=== PATIENT | female | born 1960 | race Caucasian/White ===

== ENCOUNTER → 2016-09-24 | Outpatient (CLI) | payer MEDICARE, OTHER | LOC: OD 10:09 | PROVIDERS: ATTEND Nurse Practitioner Acute Care | DX: M54.5 Low back pain (principal); R07.81 Pleurodynia; M47.896 Other spondylosis, lumbar region | CPT/HCPCS: 72110; 72220 ==

== ENCOUNTER 2016-12-05 12:58 | Emergency (ER) | payer MEDICARE, OTHER ==
[2016-12-05] MEDS ORDERED: KETOROLAC TROMETHAMINE INJ/PF 30 MG/1 ML SDV IV ONE (13:27)
[2016-12-05] MEDS ORDERED: NORMAL SALINE 1000 ML 1,000 ML IV ONE (13:27)
[2016-12-05] MEDS ORDERED: DIPHENHYDRAMINE HCL 50 MG/ML VIAL IV ONE (13:27)
[2016-12-05] MEDS ORDERED: PROCHLORPERAZINE EDISYLATE INJ 10 MG/2 ML VIAL IV ONE (13:28)
--- NOTE | 2016-12-05 13:35 | ER Document Report ---
ED Headache - General Mode of Arrival: Medic Information source: Patient TRAVEL OUTSIDE OF THE [place] IN LAST 30 DAYS: No - HPI Patient complains to provider of: "Migraine" Patient reports: Occasional migraines Onset: This morning Timing: Worse Associated symptoms: Photophobia Exacerbated by: Light, Noise - General Chief Complaint: Headache <24 hrs old Stated Complaint: HEADACHE Notes: Patient is a 56-year-old female presenting to the emergency department concerned of a migraine onset this morning. Patient has a history of migraines , and she states that this feels similar but much worse than her typical migraines. Patient admits to nausea, vomiting, diarrhea, and hot flashes. Patient also states that she is photophobic and sound sensitive as well. (ADAN WASHINGTON) This 56-year-old female patient comes in complaining of migraine headache since earlier this morning. There is some nausea vomiting and diarrhea. She states this is worse than her typical migraines but similar to her bad migraines. When I ask her about her medication she told me she takes verapamil, Topamax twice today, forming, and some new medication for anxiety and depression. She states she was weaned off of Ambien and Ativan 3-4 weeks ago. Review of the [place] controlled substances reporting system shows over the past few years the patient gets prescriptions of #60 Demerol 50mg tablets and #90 Soma 350 mg tablets. The most recent prescription of 50mg Demerol #60 tablets was on 11/10/2016. ( FARZANEH CAMPBELL) - Related Data Allergies/Adverse Reactions: hydromorphone HCl [From Dilaudid] Allergy (Severe, Verified 11/15/13 18:55) Anaphylaxis acetaminophen [From Percocet] Allergy (Verified 12/05/16 14:00) codeine [Codeine] Allergy (Verified 11/15/13 18:55) Anaphylaxis fluoxetine HCl [From Prozac] Allergy (Verified 11/15/13 18:55) ALTERED MENTAL STATUS oxycodone [From Percocet] Allergy (Verified 12/05/16 14:00) Sulfa (Sulfonamide Antibiotics) Allergy (Verified 12/05/16 14:00) divalproex sodium [From Depakote] Adverse Reaction (Verified 11/15/13 18:55) WEIGHT GAIN duloxetine HCl [From Cymbalta] Adverse Reaction (Verified 11/15/13 18:55) WEIGHT GAIN sertraline HCl [From Zoloft] Adverse Reaction (Verified 11/15/13 18:55) Anxiety beesting Allergy (Severe, Uncoded 11/15/13 18:55) Shortness of Breath Past Medical History - General Information source: Patient - Social History Smoking Status: Never Smoker Family History: Reviewed & Not Pertinent - Past Medical History Cardiac Medical History: Reports: Hx Hypertension Pulmonary Medical History: Reports: Hx Asthma - hx of, Hx Bronchitis, Hx Pneumonia Endocrine Medical History: Reports: Hx Hypothyroidism Malignancy Medical History: Reports: Hx Ovarian Cancer - early stages had removed Psychiatric Medical History: Reports: Hx Anxiety, Hx Depression Past Surgical History: Reports: Hx Appendectomy - 1977, Hx Cholecystectomy - 2001, Hx Hysterectomy, Hx Orthopedic Surgery - left knee surgery, Hx Tonsillectomy - at 29yrs of age, Hx Tubal Ligation - Immunizations Hx Diphtheria, Pertussis, Tetanus Vaccination: - possibly out of date Hx Pneumococcal Vaccination: 10/01/11 Review of Systems - Review of Systems Constitutional: See HPI, Diaphoresis EENT: No symptoms reported Cardiovascular: No symptoms reported Respiratory: No symptoms reported Gastrointestinal: See HPI, Diarrhea, Nausea, Vomiting Genitourinary: No symptoms reported Female Genitourinary: No symptoms reported Musculoskeletal: No symptoms reported Skin: No symptoms reported Hematologic/Lymphatic: No symptoms reported Neurological/Psychological: See HPI, Headaches -: Yes All other systems reviewed and negative Physical Exam - General General appearance: Alert - HEENT Head: Normocephalic, Atraumatic, Tenderness - Tenderness to palpation over the forehead and temporal muscles Eyes: Other - Photophobic Pupils: PERRL Neck: Posterior cervical chain - Tender to palpation - Respiratory Respiratory status: No respiratory distress, Respiratory distress Chest status: Nontender Breath sounds: Normal Chest palpation: Normal - Cardiovascular Rhythm: Regular Heart sounds: Normal auscultation Murmur: No - Abdominal Inspection: Obese Distension: No distension Tenderness: Nontender - Back Back: Normal, Nontender - Extremities General upper extremity: Normal inspection, Nontender General lower extremity: Normal inspection, Nontender - Neurological Neuro grossly intact: Yes Cognition: Normal Orientation: AAOx4 Yas Coma Scale Eye Opening: Spontaneous [place] Coma Scale Verbal: Oriented [place] Coma Scale Motor: Obeys Commands Yas Coma Scale Total: 15 Speech: Normal - Psychological Associated symptoms: Normal affect, Normal mood - Skin Skin Temperature: Warm Skin Moisture: Dry Skin Color: Normal Discharge - Discharge Clinical Impression: Mixed migraine and muscle contraction headache Condition: Stable Disposition: HOME, SELF-CARE Additional Instructions: REST IN A COOL, DARK, QUIET ROOM. CONTINUE YOUR REGULAR MEDICATIONS. FOLLOW UP WITH YOUR DOCTOR IF NOT IMPROVING. RETURN TO THE EMERGENCY ROOM IF ANY NEW OR WORSENING SYMPTOMS. Referrals: MACHO FELTON MD [Primary Care Provider] - Follow up as needed Scribe Attestation: 12/05/16 15:59 I personally performed the services described in the documentation, reviewed and edited the documentation which was dictated to the scribe in my presence, and it accurately records my words and actions. (FARZANEH CAMPBELL) Scribe Documentation - Scribe Written by Shanon:: Adan Washington 12/05/2016 1330 acting as scribe for :: Anne
[2016-12-05] MEDS ORDERED: MORPHINE SULFATE 10 MG/ML INJ IV ONE (15:04)
[2016-12-05 16:26] VITALS: BP 119/55
== END 2016-12-05 16:26 | disposition home or self-care (01) ==
LOC: ER 12:58
DX: G43.909 Migraine, unspecified, not intractable, without status migrainosus (principal); H53.149 Visual discomfort, unspecified; R11.2 Nausea with vomiting, unspecified; R19.7 Diarrhea, unspecified; R61 Generalized hyperhidrosis; F41.9 Anxiety disorder, unspecified; F32.9 Major depressive disorder, single episode, unspecified; I10 Essential (primary) hypertension; J45.909 Unspecified asthma, uncomplicated; Z79.899 Other long term (current) drug therapy; Z79.891 Long term (current) use of opiate analgesic; Z88.8 Allergy status to other drugs, medicaments and biological substances; Z88.2 Allergy status to sulfonamides; Z91.030 Bee allergy status; Z87.892 Personal history of anaphylaxis; Z88.5 Allergy status to narcotic agent; Z85.43 Personal history of malignant neoplasm of ovary
CPT/HCPCS: 99283; 96361; 96374; 96375; J1200; J1885; J2270; J0780; J7030

== ENCOUNTER 2017-01-28 07:53 | Day surgery (SDC) | payer MEDICARE, OTHER ==
[2017-01-28 08:50] LABS: PROTHROMBIN TIME 13.7 SEC (11.4-15.4)
[2017-01-28 08:51] LABS: PARTIAL THROMBOPLASTIN TIME 31.4 SEC (23.5-35.8)
--- NOTE | 2017-01-28 10:44 | RADIOLOGY REPORT (SQ) ---
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 IMPRESSION: Please see combined report for performance of procedure and radiologic supervision and i nterpretation.
--- NOTE | 2017-01-28 10:46 | RADIOLOGY REPORT (SQ) ---
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 FLUOROSCOPY TIME: 0.6 minute 2 images saved to PACS. TECHNIQUE: Fluoroscopic guided lumbar puncture. LIMITATIONS: None. PROCEDURE: After written consent and assessment were obtained, the patient was brought into the fluo roscopy room and placed prone on the table. The patient's lower back was prepped in a sterile fashio n and an entry site was selected under live fluoroscopic guidance. The entry site was anesthetized wi th 1% lidocaine. A 25 gauge needle was advanced through the skin and into the thecal sac at the level of L2-L3. After approximately 8 ml was drained, the needle was removed and a sterile bandage was venus malcolm of the site. Specimens was sent to the lab for testing. A fluoroscopic spot image was saved to PACS confirming level access. FINDINGS: Clear CSF IMPRESSION: Lumbar puncture under fluoroscopy. No immediate complication. COMMENT: Patient medication list reviewed: Yes. Quality ID [id number]: Final reports for procedures using fluoroscopy that document radiation exposure dolly mary, or exposure time and number of fluorographic images (if radiation exposure indices are not avail able) TECHNICAL DOCUMENTATION: JOB ID: [id number] [employer]- All Rights Reserved
[2017-01-28 11:26] LABS: GLUCOSE,CSF 67 mg/dL (40-70)
[2017-01-28 12:09] LABS: APPEARANCE ALL TUBES CLEAR; APPEARANCE TUBE 1 CLEAR; APPEARANCE TUBE 2 CLEAR; APPEARANCE TUBE 3 CLEAR; RBC AVERAGE 56.5; RBC DILUENT USED NONE USED; RBC SIDE 1 54; RBC SIDE 2 59
[2017-01-28 12:10] LABS: RBC DILUTION FACTOR 1; TOTAL RBC SQUARES COUNTED 225; WHITE BLOOD CELL,CSF 3 /uL (0-5)
[2017-01-28 14:14] VITALS: BP 107/58
[2017-01-31 15:38] LABS: CSF IGG INDEX 0.5 (0.0-0.7); IGG SYNTHESIS RATE CSF 1.8 mg/day (-9.9 TO +3.3); IGG/ALBUMIN RATIO CSF 0.08 (0.00-0.25)
== END 2017-01-28 12:40 | disposition home or self-care (01) ==
LOC: RAD 07:53
PROVIDERS: ATTEND Specialist
PROC: 009U3ZX Drainage of Spinal Canal, Percutaneous Approach, Diagnostic (ICD-10-PCS; principal; 2017-01-28)
DX: G35 Multiple sclerosis (principal); Z79.01 Long term (current) use of anticoagulants
CPT/HCPCS: 36415; 62270; 77003; 82784; 82945; 82962; 83916; 84157; 85610; 85730; 87070; 87205; 89050

== ENCOUNTER 2017-01-31 13:10 | Day surgery (SDC) | payer MEDICARE, OTHER ==
[2017-01-31 14:07] VITALS: BP 133/72
== END 2017-01-31 14:10 | disposition home or self-care (01) ==
LOC: ASU 13:10
PROVIDERS: ATTEND Anesthesiology
PROC: 3E0S3GC Introduction of Other Therapeutic Substance into Epidural Space, Percutaneous Approach (ICD-10-PCS; principal; 2017-01-31)
DX: G97.1 Other reaction to spinal and lumbar puncture (principal); Y84.4 Aspiration of fluid as the cause of abnormal reaction of the patient, or of later complication, without mention of misadventure at the time of the procedure; Y92.530 Ambulatory surgery center as the place of occurrence of the external cause
CPT/HCPCS: 62273

== ENCOUNTER 2018-11-26 16:29 | Observation (INO) | payer MEDICARE, OTHER ==
[2018-11-26 17:37] LABS: ABSOLUTE BASOPHILS # (AUTO) 0.1 10^3/uL (0.0-0.2); ABSOLUTE EOSINOPHILS # (AUTO) 0.2 10^3/uL (0.0-0.6); ABSOLUTE LYMPHOCYTES (AUTO) 3.2 10^3/uL (0.5-4.7); ABSOLUTE MONOCYTES (AUTO) 0.7 10^3/uL (0.1-1.4); BASOPHILS % (AUTO) 0.7 % (0-2); EOSINOPHILS % (AUTO) 2.6 % (0-6); HEMATOCRIT 38.6 % (36.0-47.0); HEMOGLOBIN 13.4 g/dL (12.0-15.5); LYMPHOCYTES % (AUTO) 39.5 % (13-45); MEAN CORPUSCULAR HEMOGLOBIN 30.1 pg (27.0-33.4); MEAN CORPUSCULAR HGB CONC 34.7 g/dL (32.0-36.0); MEAN CORPUSCULAR VOLUME 87 fl (80-97); MONOCYTES % (AUTO) 8.9 % (3-13); PLATELET COUNT 253 10^3/uL (150-450); RED BLOOD COUNT 4.44 10^6/uL (3.72-5.28); SEGMENTED NEUTROPHILS % (AUTO) 48.3 % (42-78); TOTAL CELLS COUNTED % (AUTO) 100 %; WHITE BLOOD COUNT 8.2 10^3/uL (4.0-10.5)
[2018-11-26 17:54] LABS: ANION GAP 10 (5-19); BLOOD UREA NITROGEN 12 mg/dL (7-20); CALCIUM 9.6 mg/dL (8.4-10.2); CARBON DIOXIDE 19 mmol/L (22-30); CHLORIDE 114 mmol/L (98-107); GLUCOSE 138 mg/dL (75-110); POTASSIUM 3.6 mmol/L (3.6-5.0); SODIUM 142.5 mmol/L (137-145)
[2018-11-26] MEDS ORDERED: ONDANSETRON HCL INJ/PF 4 MG/2 ML SDV ONE (18:46)
[2018-11-26] MEDS ORDERED: MORPHINE SULFATE 10 MG/ML INJ ONE ×2 (18:46→20:56)
[2018-11-26] MEDS ORDERED: KETOROLAC TROMETHAMINE INJ/PF 30 MG/1 ML SDV ONE (18:46)
--- NOTE | 2018-11-26 19:35 | ER Document Report ---
ED General - General Chief Complaint: Low Back Pain Stated Complaint: BACK PAIN Time Seen by Provider: 11/26/18 19:31 Notes: Patient is a 58-year-old female with a past medical history of hypertension, hyperlipidemia, presents complaining of an acute onset of upper abdominal pain radiating to her back with associated nausea vomiting. Patient states that when she woke up this morning she felt somewhat unwell in a nonspecific way. She states approximately 1-2 hours after ingestion of coffee and some donuts she developed a horrible, stabbing, cramping pain to her epigastrium left upper quadrant radiating into her back. She states the pain dropped her to her knees and made her vomit. She denies ever having such severe pain in the past. She states that she felt like she could not breathe the pain was so intense. She states that nothing seemed to improve or worsen the pain. She reports that her vomitus was bilious, nonbloody, denies any melanotic stools. She has not seen her general physician regarding today's concerns. She denies any distinct chest pain. No focal weakness or numbness. No fever or constitutional symptoms. She has a past surgical history of a cholecystectomy and appendectomy. TRAVEL OUTSIDE OF THE [place] IN LAST 30 DAYS: No - HPI Onset: Just prior to arrival Onset/Duration: Sudden Quality of pain: Achy, Cramping Severity: Severe Pain Level: 5 Associated symptoms: Nausea, Vomiting Exacerbated by: Denies Relieved by: Denies Similar symptoms previously: Yes Recently seen / treated by doctor: No - Related Data Allergies/Adverse Reactions: hydromorphone HCl [From Dilaudid] Allergy (Severe, Verified 01/28/17 08:13) Anaphylaxis acetaminophen [From Percocet] Allergy (Verified 01/28/17 08:13) codeine [Codeine] Allergy (Verified 01/28/17 08:13) Anaphylaxis fluoxetine HCl [From Prozac] Allergy (Verified 01/28/17 08:13) ALTERED MENTAL STATUS oxycodone [From Percocet] Allergy (Verified 01/28/17 08:13) Sulfa (Sulfonamide Antibiotics) Allergy (Verified 01/28/17 08:13) divalproex sodium [From Depakote] Adverse Reaction (Verified 01/28/17 08:13) WEIGHT GAIN duloxetine HCl [From Cymbalta] Adverse Reaction (Verified 01/28/17 08:13) WEIGHT GAIN sertraline HCl [From Zoloft] Adverse Reaction (Verified 01/28/17 08:13) Anxiety beesting Allergy (Severe, Uncoded 11/15/13 18:55) Shortness of Breath Past Medical History - General Information source: Patient - Social History Smoking Status: Never Smoker Chew tobacco use (# tins/day): No Frequency of alcohol use: None Drug Abuse: None Lives with: Spouse/Significant other Family History: Reviewed & Not Pertinent Patient has suicidal ideation: No Patient has homicidal ideation: No - Past Medical History Cardiac Medical History: Reports: Hx Hypertension Denies: Hx Atrial Fibrillation, Hx Congestive Heart Failure, Hx Coronary Artery Disease, Hx Heart Attack, Hx Hypercholesterolemia, Hx Peripheral Vascular Disease, Hx Heart Murmur Pulmonary Medical History: Reports: Hx Asthma - hx of, Hx Bronchitis, Hx Pneumonia Denies: Hx COPD, Hx Tuberculosis Neurological Medical History: Denies: Hx Cerebrovascular Accident, Hx Seizures Endocrine Medical History: Reports: Hx Hypothyroidism. Denies: Hx Graves' Disease Renal/ Medical History: Denies: Hx Ovarian Cysts, Hx Peritoneal Dialysis, Hx Pelvic Inflammatory Disease Malignancy Medical History: Reports: Hx Ovarian Cancer - early stages had removed. Denies: Hx Breast Cancer, Hx Cervical Cancer, Hx Leukemia, Hx Lung Cancer Musculoskeletal Medical History: Reports Hx Arthritis - osteoarthritis in bilateral legs Psychiatric Medical History: Reports: Hx Anxiety, Hx Depression Denies: Hx Bipolar Disorder, Hx Post Traumatic Stress Disorder, Hx Schizophrenia Infectious Medical History: Denies: Hx HIV Past Surgical History: Reports: Hx Appendectomy - 1977, Hx Cholecystectomy - 2001, Hx Hysterectomy, Hx Orthopedic Surgery - left knee surgery, Hx Tonsillectomy - at 29yrs of age, Hx Tubal Ligation. Denies: Hx Bowel Surgery, Hx Section, Hx Coronary Artery Bypass Graft, Hx Gastric Bypass Surgery, Hx Herniorrhaphy, Hx Mastectomy, Hx Pacemaker - Immunizations Hx Diphtheria, Pertussis, Tetanus Vaccination: - possibly out of date Hx Pneumococcal Vaccination: 10/01/11 Review of Systems - Review of Systems Notes: Constitutional: Negative for fever. HENT: Negative for sore throat. Eyes: Negative for visual changes. Cardiovascular: Negative for chest pain. Respiratory: Negative for shortness of breath. Gastrointestinal: Positive for upper abdominal pain, nausea and vomiting Genitourinary: Negative for dysuria. Musculoskeletal: Positive for back pain Skin: Negative for rash. Neurological: Negative for headaches, weakness or numbness. 10 point ROS negative except as marked above and in HPI. Physical Exam - Vital signs Vitals: Temp Pulse Resp BP Pulse Ox 98.6 F 63 24 H 132/85 H 100 11/26/18 16:29 11/26/18 16:29 11/26/18 16:29 11/26/18 16:29 11/26/18 16:29 Interpretation: Normal Notes: PHYSICAL EXAMINATION: GENERAL: Appears somewhat ill, in obvious pain HEAD: Atraumatic, normocephalic. EYES: Pupils equal round and reactive to light, extraocular movements intact, sclera anicteric, conjunctiva are normal. ENT: nares patent, oropharynx clear without exudates. Moderately dry mucous membranes. NECK: Normal range of motion, supple without lymphadenopathy LUNGS: Breath sounds clear to auscultation bilaterally and equal. No wheezes rales or rhonchi. HEART: Regular rate and rhythm without murmurs ABDOMEN: Soft, mild tenderness the epigastric and left upper quadrant, normoactive bowel sounds. No guarding, no rebound. No masses appreciated. EXTREMITIES: Normal range of motion, no pitting or edema. No cyanosis. NEUROLOGICAL: No focal neurological deficits. Moves all extremities spontaneously and on command. PSYCH: Moderately anxious SKIN: Warm, Dry, normal turgor, no rashes or lesions noted. Course - Re-evaluation Re-evalutation: 11/26/18 19:34 Patient presents with an acute onset of severe back pain mostly to the right flank radiating into the right mid abdomen. Has a history of an appendectomy, cholecystectomy, no previous abdominal surgical history otherwise. Patient appears to be in moderate to severe discomfort at the time of my assessment. No history of similar symptoms in the past. On abdominal exam she does not have any distinct area of focality, somewhat tender to the epigastrium left upper quadrant more than the rest. Right and left CVA tenderness is present. Differential includes pancreatitis although no clear reason for why the patient would develop this, nephrolithiasis, gastritis duodenitis, much less likely a perforation. Will obtain CT abdomen pelvis, labs and reassess the patient. 11/26/18 22:40 I have reassessed this patient on 2 occasions since initial assessment. She continues to appear to be in moderate pain and is requiring opiate analgesia's. CT scan of the abdomen and pelvis noted to be unremarkable in the abdomen but does show a pericardial effusion. Troponin and labs otherwise unremarkable. Patient is continued to be in significant pain, requiring morphine analgesia to maintain control of her symptoms. I am uncertain of what would be causing the patient's pericardial effusion it is possible she has a pericarditis with associated effusion that could be causing upper abdominal discomfort radiating to her back. Will continue to reassess at regular intervals 11/26/18 23:53 Patient's troponin is normal. She had continues to be without any chest discomfort. At this point I believe the effusion likely does not have anything to do with her upper abdominal discomfort but given that it is quite small in size and does not appear to be causing any evidence of tamponade on bedside ultrasound. I have repeated the bedside ultrasound and again has not expanded in size. I have discussed with the hospitalist here and I believe at this point the most likely diagnosis is a gastric ulcer or gastritis. Given her degree of pain and need for opiate analgesia I have discussed with Dr. Rodriguez who has accepted the patient. - Vital Signs Vital signs: Temp Pulse Resp BP Pulse Ox 98.0 F 53 L 17 106/59 L 100 11/27/18 02:23 11/27/18 02:23 11/27/18 02:23 11/27/18 02:23 11/27/18 02:23 - Laboratory Result Diagrams: 11/26/18 16:06 11/26/18 16:06 Laboratory results interpreted by me: 11/26/18 11/26/18 16:06 16:06 Chloride 114 H Carbon Dioxide 19 L Glucose 138 H Total Protein 6.2 L - Diagnostic Test Radiology reviewed: Image reviewed, Reports reviewed Radiology results interpreted by me: 11/26/18 23:56 CT chest: Mild pericardial effusion Critical Care Note - Critical Care Note Total time excluding time spent on procedures (mins): 36 Comments: Critical care time spent obtaining history from patient or surrogate, discussions with consultants, development of treatment plan with patient or surrogate, evaluation of patient's response to treatment, examination of patient, ordering and performing treatments and interventions, ordering and review of laboratory studies, re-evaluation of patient's condition, ordering and review of radiographic studies and review of old charts Discharge - Discharge Clinical Impression: Gastritis/duodenitis, Pericardial effusion, Mid back pain Nausea and vomiting Qualifiers: Vomiting type: unspecified Vomiting Intractability: non-intractable Qualified Code(s): R11.2 - Nausea with vomiting, unspecified Condition: Fair Disposition: ADMITTED OBSERVATION Admitting Provider: Tal (Hospitalist) Unit Admitted: Telemetry
[2018-11-26 19:38] LABS: APPEARANCE,URINE SLIGHTLY-CLOUDY; COLOR,URINE YELLOW
[2018-11-26 19:39] LABS: BILIRUBIN,URINE NEGATIVE (NEGATIVE); GLUCOSE, URINE NEGATIVE (NEGATIVE); KETONES,URINE NEGATIVE (NEGATIVE); URINE SPECIFIC GRAVITY 1.005
[2018-11-26 19:40] LABS: LEUKOCYTE ESTERASE,URINE NEGATIVE (NEGATIVE); NITRITE,URINE NEGATIVE (NEGATIVE); PROTEIN,URINE NEGATIVE (NEGATIVE); UROBILINOGEN,URINE NEGATIVE mg/dL (<2.0)
[2018-11-26 19:41] LABS: AMORPHOUS SEDIMENT,URINE RARE /HPF
[2018-11-26 19:57] LABS: ALANINE AMINOTRANSFERASE 16 U/L (9-52); ALBUMIN 3.7 g/dL (3.5-5.0); ALKALINE PHOSPHATASE 65 U/L (38-126); ASPARTATE AMINO TRANSFERASE 22 U/L (14-36); BILIRUBIN,DIRECT 0.3 mg/dL (0.0-0.4); BILIRUBIN,TOTAL 0.3 mg/dL (0.2-1.3); TOTAL PROTEIN 6.2 g/dL (6.3-8.2)
[2018-11-26] MEDS: MORPHINE SULFATE 10 MG/ML INJ IV PRN (21:02)
--- NOTE | 2018-11-26 21:43 | RADIOLOGY REPORT (SQ) ---
EXAM DESCRIPTION: [facility]: CT ABDOMEN PELVIS WITH IV CONTRAST CLINICAL HISTORY: 58 years Female; EVAL UPPER ABD PAIN TECHNIQUE: CT of the abdomen and pelvis using intravenous contrast. All CT scans at this facility use dose modulation, iterative reconstruction, and/or weight based dosing when appropriate to reduce radiation dose to as low as reasonably achievable. COMPARISON: None. FINDINGS: There is a small pericardial effusion, maximum thickness 1.1 cm on the inferior margin of the heart. Lung bases are clear. No pleural effusion. Abdomen: Liver:No focal lesions. No intrahepatic ductal distention. Gallbladder: Surgically absent Pancreas:Within normal limits Spleen:Within normal limits Right kidney:No hydronephrosis. No focal lesion. Left kidney:No hydronephrosis. No focal lesion. Adrenal glands:Within normal limits Vascular structures:Within normal limits Pelvis: Small bowel:No significant distention. Appendix:Within normal limits Colon: Scattered diverticula, mostly along the sigmoid and descending colon. No acute pericolonic edema. No colonic distention. No free intraperitoneal fluid or air. No pelvic mass or adenopathy. IMPRESSION: 1. Pericardial effusion 2. Colonic diverticulosis but no CT evidence for acute diverticulitis. 3. No acute findings in the abdomen or pelvis. 4. Previous cholecystectomy.
[2018-11-26] MEDS ORDERED: SUCRALFATE 1 GM TABLET PO ONE (21:47)
[2018-11-26] MEDS ORDERED: FAMOTIDINE 20 MG TABLET PO ONE (21:47)
[2018-11-26] MEDS ORDERED: LIDOCAINE 2% VISCOUS SOLN 20 ML UDCUP PO ONE (21:48)
[2018-11-26] MEDS ORDERED: METOCLOPRAMIDE HCL ORAL SOLN 10 MG/10 ML UDCUP PO ONE (21:48)
[2018-11-26] MEDS ORDERED: MAG HYDROX/AL HYDROX/SIMETH SUSP 30 ML UDCUP PO ONE (21:48)
--- NOTE | 2018-11-26 23:24 | RADIOLOGY REPORT (SQ) ---
EXAM DESCRIPTION: CT CHEST WITHOUT IV CONTRAST COMPLETED DATE/TME: 11/26/2018 22:32 CLINICAL HISTORY: 58 years Female, pericaridal effusion, ongoing severe upper ab pain (Issue with Aorta??) Comparison: None. Technique: No contrast. Coronal and sagittal reformat. This exam was performed according to our departmental dose-optimization program, which includes automated exposure control, adjustment of the mA and/or kV according to patient size and/or use of iterative reconstruction technique. [facility]: Dose Right [facility]: CareDose [facility]: Dose Right [facility]: Teradose 4D [facility]: [employer] LIMITATIONS: No contrast. Findings: Small-moderate pericardial fluid. Cholecystectomy. Atelectasis/scar. Atherosclerotic vascular disease. Unenhanced aorta appears intact and of normal caliber.Colonic diverticulosis. Degenerative disc disease. Unenhanced inferior neck, axillae, mediastinum, lungs, airway, lymphatics, heart, vasculature, upper abdomen, and musculoskeleton appear otherwise unremarkable. Impression: Small moderate pericardial effusion. Else, unremarkable noncontrast CT of the chest.
[2018-11-26] MEDS ORDERED: MAG HYDROX/AL HYDROX/SIMETH SUSP 30 ML UDCUP PO PRN (23:45)
[2018-11-26] MEDS ORDERED: ZOLPIDEM TARTRATE 5 MG TABLET PO PRN (23:45)
[2018-11-26] MEDS ORDERED: ONDANSETRON HCL INJ/PF 4 MG/2 ML SDV IV PRN (23:45)
[2018-11-26] MEDS ORDERED: MAGNESIUM HYDROXIDE SUSP 30 ML UDCUP PO PRN (23:45)
[2018-11-27] MEDS: MORPHINE SULFATE 10 MG/ML INJ IV PRN ×2 (00:42→22:56)
[2018-11-27] MEDS: NORMAL SALINE 1000 ML 1,000 ML IV PRN ×2 (00:42→11:38)
[2018-11-27 00:55] LABS: CREATINE KINASE MB 0.31 ng/mL (<4.55)
[2018-11-27 00:56] LABS: TROPONIN I < 0.012 ng/mL
[2018-11-27] MEDS ORDERED: SIMVASTATIN 10 MG TABLET PO ONE (01:00)
[2018-11-27] MEDS ORDERED: BUSPIRONE HCL 10 MG TABLET PO ONE (01:00)
--- NOTE | 2018-11-27 02:14 | PDOC H&P ---
History of Present Illness Admission Date/PCP: 11/27/18 00:11 ZACH CARDENAS MD Patient complains of: Abdominal pain History of Present Illness: SURENDRA ESTEVEZ is a 58 year old female with history of multiple medical problems that will be mentioned below who presented to the emergency room with acute onset of right flank pain radiating to her epigastric area with associated intractable nausea and vomiting today. She vomited yellowish liquid. No fever or chills. No chest pain or palpitations or dyspnea. She has been having cough. No dysuria, oliguria or hematuria or flank pain. Upon presentation to the emergency room, her blood pressure was 132/85 with a pulse of 63 respiratory rate of 24 temperature 98.6 and pulse oximetry 100% on room air. Labs are remarkable for a CO2 of 19 and chloride of 114 with total protein of 6.2. Initial set of cardiac enzymes was negative. Urinalysis was unremarkable. The patient abdominal and pelvic CT scan with IV contrast revealed colonic diverticulosis without diverticulitis, previous cholecystectomy, with no acute findings in the abdomen or pelvis. It showed pericardial effusion. Chest CT without contrast revealed small to moderate pericardial effusion otherwise was unremarkable. The patient was given 10 mg of IV morphine sulfate twice, p.o. Reglan and Carafate, GI cocktail and Pepcid, IV Toradol, Zofran and BuSpar. She was still having epigastric abdominal pain and tenderness. She will be admitted to an observation telemetry bed for further evaluation and management. Past Medical History Cardiac Medical History: Reports: Hypertension Denies: Atrial Fibrillation, Congestive Heart Failure, Coronary Artery Disease, Myocardial Infarction, Hyperlipidema, Peripheral Vascular Disease, Heart Murmur Pulmonary Medical History: Reports: Asthma - hx of, Bronchitis, Pneumonia Denies: Chronic Obstructive Pulmonary Disease (COPD), Tuberculosis Neurological Medical History: Reports: Migraine Denies: Seizures Endocrine Medical History: Reports: Diabetes Mellitus Type 2 - Borderline, Hypothyroidism Malignancy Medical History: Reports: Ovarian Cancer - early stages had removed Denies: Breast Cancer, Cervical Cancer, Leukemia, Lung Cancer Musculoskeltal Medical History: Reports: Arthritis - osteoarthritis in bilateral legs Psychiatric Medical History: Reports: Depression Denies: Bipolar Disorder, Post Traumatic Stress Disorder Hematology: Reports: Anemia Denies: Hemophilia, Sickle Cell Disease Infectious Medical History: Denies: HIV Past Surgical History Past Surgical History: Reports: Appendectomy - 1977, Cholecystectomy - 2002, Hysterectomy, Orthopedic Surgery - left knee surgery, Tonsillectomy - at 29yrs of age, Tubal Ligation, Other - Bilateral carpal tunnel release and left knee surgery Denies: Section, Coronary Artery Bypass Graft, Gastric Bypass Surgery, Herniorrhaphy, Mastectomy, Pacemaker Social History Smoking Status: Never Smoker Frequency of Alcohol Use: None Hx Recreational Drug Use: No Hx Prescription Drug Abuse: No - Advance Directive Resuscitation Status: Full Code Family History Family History: Her father had agent orange diabetes mellitus and her mother from CHF Parental Family History Reviewed: Yes Children Family History Reviewed: Yes Sibling(s) Family History Reviewed.: Yes Medication/Allergy Home Medications: Topiramate [Topamax 100 Mg Tablet] 200 mg PO QAM 04/10/13 Verapamil HCl [Verapamil ER] 120 mg PO DAILY 09/27/13 Buspirone HCl 1 tab PO QID 01/28/17 Escitalopram Oxalate 10 mg PO DAILY 01/28/17 Levothyroxine Sodium 75 mcg PO DAILY 01/28/17 Meperidine HCl 2 tab PO Q6H PRN 01/28/17 Metformin HCl 500 mg PO DAILY 01/28/17 Promethazine HCl 25 mg PO Q8H PRN 01/28/17 Simvastatin 20 mg PO QHS 01/28/17 Allergies/Adverse Reactions: hydromorphone HCl [From Dilaudid] Allergy (Severe, Verified 01/28/17 08:13) Anaphylaxis acetaminophen [From Percocet] Allergy (Verified 01/28/17 08:13) codeine [Codeine] Allergy (Verified 01/28/17 08:13) Anaphylaxis fluoxetine HCl [From Prozac] Allergy (Verified 01/28/17 08:13) ALTERED MENTAL STATUS oxycodone [From Percocet] Allergy (Verified 01/28/17 08:13) Sulfa (Sulfonamide Antibiotics) Allergy (Verified 01/28/17 08:13) divalproex sodium [From Depakote] Adverse Reaction (Verified 01/28/17 08:13) WEIGHT GAIN duloxetine HCl [From Cymbalta] Adverse Reaction (Verified 01/28/17 08:13) WEIGHT GAIN sertraline HCl [From Zoloft] Adverse Reaction (Verified 01/28/17 08:13) Anxiety beesting Allergy (Severe, Uncoded 11/15/13 18:55) Shortness of Breath Review of Systems Review of Systems: As per history of present illness. All pertinent systems were reviewed above. Constitutional, HEENT, cardiovascular, respiratory, GI, , musculoskeletal, neuro, psychiatric, endocrine, integumentary and hematologic systems were reviewed and are otherwise negative/unremarkable except for positive findings mentioned above in the HPI. Physical Exam Vital Signs: Temp Pulse Resp BP Pulse Ox 98.9 F 63 16 114/54 L 98 11/27/18 00:39 11/26/18 16:29 11/27/18 00:39 11/27/18 00:39 11/27/18 00:39 Intake & Output 11/25/18 11/26/18 11/27/18 06:59 06:59 06:59 Weight 79.5 kg Exam: Generally: Pleasant middle-aged female in no acute distress Vital signs-as listed Head - atraumatic, normocephalic. Pupils - equal, round and reactive to light and accommodation. Extraocular movements are intact. No scleral icterus. Oropharynx - moist mucous membranes and tongue. No pharyngeal erythema or exudate. Neck - supple. No JVD. Carotid pulses 2+ bilaterally. No carotid bruits. No palpable thyromegaly or lymphadenopathy. Cardiovascular - regular rate and rhythm. Normal S1 and S2. No murmurs, gallops or rubs. Lungs - clear to auscultation bilaterally. Abdomen - soft with epigastric tenderness as well as right CVA tenderness without rebound tenderness guarding or rigidity. Positive bowel sounds. No palpable organomegaly or masses. Extremities - no pitting edema, clubbing or cyanosis. Neuro - grossly non-focal. Skin - no rashes. Breast, pelvic and rectal - deferred Results Laboratory Results: 11/26/18 16:06 11/26/18 16:06 11/26/18 11/26/18 11/26/18 16:06 16:06 16:06 WBC 8.2 RBC 4.44 Hgb 13.4 Hct 38.6 MCV 87 MCH 30.1 MCHC 34.7 RDW 14.0 Plt Count 253 Seg Neutrophils % 48.3 Lymphocytes % 39.5 Monocytes % 8.9 Eosinophils % 2.6 Basophils % 0.7 Absolute Neutrophils 4.0 Absolute Lymphocytes 3.2 Absolute Monocytes 0.7 Absolute Eosinophils 0.2 Absolute Basophils 0.1 Sodium 142.5 Potassium 3.6 Chloride 114 H Carbon Dioxide 19 L Anion Gap 10 BUN 12 Creatinine 0.88 Est GFR ( Amer) > 60 Est GFR (Non-Af Amer) > 60 Glucose 138 H Calcium 9.6 Total Bilirubin 0.3 AST 22 ALT 16 Alkaline Phosphatase 65 Total Protein 6.2 L Albumin 3.7 Lipase 48.0 Urine Color Urine Appearance Urine pH Ur Specific [place] Urine Protein Urine Glucose (UA) Urine Ketones Urine Blood Urine Nitrite Ur Leukocyte Esterase Urine WBC (Auto) Urine RBC (Auto) 11/26/18 18:55 WBC RBC Hgb Hct MCV MCH MCHC RDW Plt Count Seg Neutrophils % Lymphocytes % Monocytes % Eosinophils % Basophils % Absolute Neutrophils Absolute Lymphocytes Absolute Monocytes Absolute Eosinophils Absolute Basophils Sodium Potassium Chloride Carbon Dioxide Anion Gap BUN Creatinine Est GFR ( Amer) Est GFR (Non-Af Amer) Glucose Calcium Total Bilirubin AST ALT Alkaline Phosphatase Total Protein Albumin Lipase Urine Color YELLOW Urine Appearance SLIGHTLY-CLOUDY Urine pH 9.0 Ur Specific [place] 1.005 Urine Protein NEGATIVE Urine Glucose (UA) NEGATIVE Urine Ketones NEGATIVE Urine Blood NEGATIVE Urine Nitrite NEGATIVE Ur Leukocyte Esterase NEGATIVE Urine WBC (Auto) 0 Urine RBC (Auto) 1 11/26/18 11/27/18 11/27/18 16:06 00:20 00:20 Creatine Kinase 37 CK-MB (CK-2) 0.31 Troponin I < 0.012 < 0.012 Impressions: Abdomen/Pelvis CT 11/26/18 00:00 IMPRESSION: 1. Pericardial effusion 2. Colonic diverticulosis but no CT evidence for acute diverticulitis. 3. No acute findings in the abdomen or pelvis. 4. Previous cholecystectomy. Assessment and Plan - Diagnosis (1) Epigastric pain Is this a current diagnosis for this admission?: Yes Plan: This is likely related to acute gastritis. She has been having pain with intractable nausea and vomiting. Her abdominal CT scan was otherwise unremarkable. Her urinalysis came back negative. We will place her on IV PPI therapy and obtain a surgery consultation by Dr. Willoughby for consideration of EGD. (2) Nausea and vomiting Qualifiers: Vomiting type: unspecified Vomiting Intractability: non-intractable Qualified Code(s): R11.2 - Nausea with vomiting, unspecified Is this a current diagnosis for this admission?: Yes Plan: IV PPI therapy as mentioned above and will place her on as needed antiemetics. (3) Pericardial effusion Is this a current diagnosis for this admission?: Yes Plan: We will obtain a 2D echo for further assessment (4) Hypertension Is this a current diagnosis for this admission?: Yes Plan: We will continue her verapamil ER (5) Borderline type 2 diabetes mellitus Is this a current diagnosis for this admission?: Yes Plan: We will place on supplemental coverage with NovoLog. She has stopped taking metformin. (6) Hypothyroidism Is this a current diagnosis for this admission?: Yes Plan: We will check TSH and resume Synthroid. (7) DVT prophylaxis Is this a current diagnosis for this admission?: Yes Plan: Subcutaneous Lovenox - Time Within: within 24 hours - Plan Summary Plan Summary: The plan of care was discussed in details with the patient. I answered all questions. The patient agreed to proceed with the above-mentioned plan. The patient is presumably full code. This note was created by [employer] software and may contain typo errors that may have not been proofread.
[2018-11-27] MEDS ORDERED: DEXTROSE 50%-WATER 25 GM/50 ML DISP.SYRIN IV PRN ×2 (02:19)
[2018-11-27] MEDS ORDERED: DEXTROSE 40% GEL 15 GM TUBE PO PRN ×2 (02:19)
[2018-11-27] MEDS ORDERED: GLUCAGON,HUMAN RECOMB 1 MG INJ IM PRN (02:19)
[2018-11-27] MEDS ORDERED: INSULIN LISPRO 100 UNIT/ML 3 ML VIAL SUBCUT ONE (03:00)
[2018-11-27] MEDS: PANTOPRAZOLE SODIUM 40 MG VIAL IV SCH ×2 (05:07→19:11)
[2018-11-27] MEDS: INSULIN LISPRO 100 UNIT/ML 3 ML VIAL SUBCUT SCH ×3 (05:10→19:11)
--- NOTE | 2018-11-27 06:37 | EKG REPORT ---
SEVERITY:- ABNORMAL ECG - SINUS RHYTHM ABNORMAL T, CONSIDER ISCHEMIA, ANTERIOR LEADS : Confirmed by: Levi Lundberg MD 27-Nov-2018 06:37:22
[2018-11-27 08:07] LABS: ABSOLUTE BASOPHILS # (AUTO) 0.1 10^3/uL (0.0-0.2); ABSOLUTE EOSINOPHILS # (AUTO) 0.1 10^3/uL (0.0-0.6); ABSOLUTE LYMPHOCYTES (AUTO) 1.8 10^3/uL (0.5-4.7); ABSOLUTE MONOCYTES (AUTO) 0.7 10^3/uL (0.1-1.4); ABSOLUTE NEUT (AUTO) 4.5 10^3/uL (1.7-8.2); BASOPHILS % (AUTO) 0.9 % (0-2); EOSINOPHILS % (AUTO) 1.2 % (0-6); HEMATOCRIT 34.3 % (36.0-47.0); LYMPHOCYTES % (AUTO) 25.3 % (13-45); MEAN CORPUSCULAR HGB CONC 33.2 g/dL (32.0-36.0); MEAN CORPUSCULAR VOLUME 87 fl (80-97); MONOCYTES % (AUTO) 9.8 % (3-13); PLATELET COUNT 197 10^3/uL (150-450); RED BLOOD COUNT 3.93 10^6/uL (3.72-5.28); RED CELL DISTRIBUTION WIDTH 14.1 % (11.5-14.0); SEGMENTED NEUTROPHILS % (AUTO) 62.8 % (42-78); TOTAL CELLS COUNTED % (AUTO) 100 %; WHITE BLOOD COUNT 7.2 10^3/uL (4.0-10.5)
[2018-11-27 08:13] LABS: ALANINE AMINOTRANSFERASE 217 U/L (9-52); ALKALINE PHOSPHATASE 87 U/L (38-126); ASPARTATE AMINO TRANSFERASE 257 U/L (14-36); BILIRUBIN,DIRECT 0.2 mg/dL (0.0-0.4); BILIRUBIN,TOTAL 0.4 mg/dL (0.2-1.3); BLOOD UREA NITROGEN 10 mg/dL (7-20); CALCIUM 8.5 mg/dL (8.4-10.2); CREATINE KINASE 35 U/L (30-135); GLUCOSE 101 mg/dL (75-110); POTASSIUM 3.7 mmol/L (3.6-5.0); TOTAL PROTEIN 5.3 g/dL (6.3-8.2)
[2018-11-27 08:14] LABS: HEMOGLOBIN 11.4 g/dL (12.0-15.5)
[2018-11-27 08:18] LABS: CARBON DIOXIDE 22 mmol/L (22-30); CHLORIDE 118 mmol/L (98-107); SODIUM 142.9 mmol/L (137-145)
[2018-11-27 08:21] LABS: ANION GAP 3 (5-19)
[2018-11-27 08:26] LABS: CREATINE KINASE MB < 0.22 ng/mL (<4.55); TROPONIN I < 0.012 ng/mL
[2018-11-27] MEDS ORDERED: ESCITALOPRAM OXALATE 10 MG TABLET PO SCH (10:00)
[2018-11-27] MEDS: BUSPIRONE HCL 10 MG TABLET PO SCH ×4 (11:39→22:58)
[2018-11-27] MEDS: TOPIRAMATE 100 MG TABLET PO SCH (11:39)
[2018-11-27] MEDS: ENOXAPARIN SODIUM INJ 40 MG/0.4 ML DISP.SYRIN SUBCUT SCH (11:40)
[2018-11-27] MEDS: VERAPAMIL HCL 120 MG TABLET.SA PO SCH (11:40)
[2018-11-27] MEDS: LEVOTHYROXINE SODIUM 0.075 MG TABLET PO SCH (11:44)
--- NOTE | 2018-11-27 11:46 | PDOC CONSULTATION ---
History of Present Illness Admission Date/PCP: 11/27/18 00:11 ZACH CARDENAS MD Patient complains of: nausea, vomiting History of Present Illness: SURENDRA ESTEVEZ is a 58 year old female with a hx of HTN, asthma, seizures, type II diabetes, admitted for intractable nausea and vomiting, she denies hx of GERD, PUD, previous episodes of N/V i the past. She is also c/o epigastric pain. Currently, she has no vomiting, she is nauseated. Past Medical History Cardiac Medical History: Reports: Hypertension Denies: Atrial Fibrillation, Congestive Heart Failure, Coronary Artery Disease, Myocardial Infarction, Hyperlipidema, Peripheral Vascular Disease, Heart Murmur Pulmonary Medical History: Reports: Asthma - hx of, Bronchitis, Pneumonia Denies: Chronic Obstructive Pulmonary Disease (COPD), Tuberculosis Neurological Medical History: Reports: Migraine Denies: Seizures Endocrine Medical History: Reports: Diabetes Mellitus Type 2 - Borderline, Hy pothyroidism Malignancy Medical History: Reports: Ovarian Cancer - early stages had removed Denies: Breast Cancer, Cervical Cancer, Leukemia, Lung Cancer Musculoskeltal Medical History: Reports: Arthritis - osteoarthritis in bilateral legs Psychiatric Medical History: Reports: Depression Denies: Bipolar Disorder, Post Traumatic Stress Disorder Hematology: Reports: Anemia Denies: Hemophilia, Sickle Cell Disease Infectious Medical History: Denies: HIV Past Surgical History Past Surgical History: Reports: Appendectomy - 1977, Cholecystectomy - 2001, Hysterectomy, Orthopedic Surgery - left knee surgery, Tonsillectomy - at 29yrs of age, Tubal Ligation, Other - Bilateral carpal tunnel release and left knee surgery Denies: Section, Coronary Artery Bypass Graft, Gastric Bypass Surgery, Herniorrhaphy, Mastectomy, Pacemaker Social History Lives with: Spouse/Significant other Smoking Status: Never Smoker Frequency of Alcohol Use: None Hx Recreational Drug Use: No Drugs: None Hx Prescription Drug Abuse: No - Advance Directive Resuscitation Status: Full Code Family History Family History: Reviewed & Not Pertinent Parental Family History Reviewed: No Children Family History Reviewed: No Sibling(s) Family History Reviewed.: No Medication/Allergy Home Medications: Erenumab-Aooe [Aimovig Autoinjector (2 Pack)] 1 ml INJ .MONTHLY 11/27/18 Levothyroxine Sodium [Tirosint] 75 mcg PO Q6AM 11/27/18 Meperidine HCl [Demerol] 100 mg PO Q8HP PRN 11/27/18 Promethazine HCl 50 mg PO DAILY 11/27/18 Simvastatin [Zocor 20 mg Tablet] 20 mg PO QHS 11/27/18 Topiramate [Topamax 100 mg Tablet] 200 mg PO Q12 11/27/18 Verapamil HCl [[place] 120 mg Tablet] 120 mg PO DAILY 11/27/18 Allergies/Adverse Reactions: hydromorphone HCl [From Dilaudid] Allergy (Severe, Verified 01/28/17 08:13) Anaphylaxis acetaminophen [From Percocet] Allergy (Verified 01/28/17 08:13) codeine [Codeine] Allergy (Verified 01/28/17 08:13) Anaphylaxis fluoxetine HCl [From Prozac] Allergy (Verified 01/28/17 08:13) ALTERED MENTAL STATUS oxycodone [From Percocet] Allergy (Verified 01/28/17 08:13) Sulfa (Sulfonamide Antibiotics) Allergy (Verified 01/28/17 08:13) divalproex sodium [From Depakote] Adverse Reaction (Verified 01/28/17 08:13) WEIGHT GAIN duloxetine HCl [From Cymbalta] Adverse Reaction (Verified 01/28/17 08:13) WEIGHT GAIN sertraline HCl [From Zoloft] Adverse Reaction (Verified 01/28/17 08:13) Anxiety beesting Allergy (Severe, Uncoded 11/15/13 18:55) Shortness of Breath Physical Exam Vital Signs: Temp Pulse Resp BP Pulse Ox 98.0 F 53 L 17 106/59 L 100 11/27/18 02:23 11/27/18 02:23 11/27/18 02:23 11/27/18 02:23 11/27/18 02:23 Intake & Output 11/26/18 11/27/18 11/28/18 06:59 06:59 06:59 Weight 79.5 kg General appearance: PRESENT: mild distress Head exam: PRESENT: atraumatic Eye exam: PRESENT: EOMI Mouth exam: PRESENT: dry mucosa, neck supple Neck exam: PRESENT: full ROM Respiratory exam: PRESENT: clear to auscultation dimple Cardiovascular exam: PRESENT: RRR GI/Abdominal exam: PRESENT: hypoactive bowel sounds, soft, tenderness - in the epigastrium Rectal exam: PRESENT: deferred Extremities exam: PRESENT: full ROM Musculoskeletal exam: PRESENT: full ROM Neurological exam: PRESENT: alert, awake, CN II-XII grossly intact Skin exam: PRESENT: warm Results Laboratory Results: 11/27/18 07:40 11/27/18 07:40 11/26/18 11/26/18 11/26/18 16:06 16:06 16:06 WBC 8.2 RBC 4.44 Hgb 13.4 Hct 38.6 MCV 87 MCH 30.1 MCHC 34.7 RDW 14.0 Plt Count 253 Seg Neutrophils % 48.3 Lymphocytes % 39.5 Monocytes % 8.9 Eosinophils % 2.6 Basophils % 0.7 Absolute Neutrophils 4.0 Absolute Lymphocytes 3.2 Absolute Monocytes 0.7 Absolute Eosinophils 0.2 Absolute Basophils 0.1 Sodium 142.5 Potassium 3.6 Chloride 114 H Carbon Dioxide 19 L Anion Gap 10 BUN 12 Creatinine 0.88 Est GFR ( Amer) > 60 Est GFR (Non-Af Amer) > 60 Glucose 138 H Calcium 9.6 Total Bilirubin 0.3 AST 22 ALT 16 Alkaline Phosphatase 65 Total Protein 6.2 L Albumin 3.7 Lipase 48.0 Urine Color Urine Appearance Urine pH Ur Specific [place] Urine Protein Urine Glucose (UA) Urine Ketones Urine Blood Urine Nitrite Ur Leukocyte Esterase Urine WBC (Auto) Urine RBC (Auto) 11/26/18 11/27/18 11/27/18 18:55 07:40 07:40 WBC 7.2 RBC 3.93 Hgb 11.4 L Hct 34.3 L MCV 87 MCH 29.0 MCHC 33.2 RDW 14.1 H Plt Count 197 Seg Neutrophils % 62.8 Lymphocytes % 25.3 Monocytes % 9.8 Eosinophils % 1.2 Basophils % 0.9 Absolute Neutrophils 4.5 Absolute Lymphocytes 1.8 Absolute Monocytes 0.7 Absolute Eosinophils 0.1 Absolute Basophils 0.1 Sodium 142.9 Potassium 3.7 Chloride 118 H Carbon Dioxide 22 Anion Gap 3 L BUN 10 Creatinine 0.95 Est GFR ( Amer) > 60 Est GFR (Non-Af Amer) > 60 Glucose 101 Calcium 8.5 Total Bilirubin 0.4 AST 257 H ALT 217 H Alkaline Phosphatase 87 Total Protein 5.3 L Albumin 3.0 L Lipase Urine Color YELLOW Urine Appearance SLIGHTLY-CLOUDY Urine pH 9.0 Ur Specific [place] 1.005 Urine Protein NEGATIVE Urine Glucose (UA) NEGATIVE Urine Ketones NEGATIVE Urine Blood NEGATIVE Urine Nitrite NEGATIVE Ur Leukocyte Esterase NEGATIVE Urine WBC (Auto) 0 Urine RBC (Auto) 1 11/26/18 11/27/18 11/27/18 16:06 00:20 00:20 Creatine Kinase 37 CK-MB (CK-2) 0.31 Troponin I < 0.012 < 0.012 11/27/18 11/27/18 07:40 07:40 Creatine Kinase 35 CK-MB (CK-2) < 0.22 Troponin I < 0.012 Impressions: Abdomen/Pelvis CT 11/26/18 00:00 IMPRESSION: 1. Pericardial effusion 2. Colonic diverticulosis but no CT evidence for acute diverticulitis. 3. No acute findings in the abdomen or pelvis. 4. Previous cholecystectomy. Assessment & Plan - Diagnosis (1) Epigastric pain Is this a current diagnosis for this admission?: Yes (2) Nausea and vomiting Qualifiers: Vomiting type: unspecified Vomiting Intractability: non-intractable Qualified Code(s): R11.2 - Nausea with vomiting, unspecified Is this a current diagnosis for this admission?: Yes - Plan Summary Plan Summary: A/ Epigastric pain, nausea, vomiting Cardiac workup negative so far; however, she has not been cleared yet and there is one more set pending CT scan Chest and A/P negative Blood work WNL except for mild anemia (H/H= 11.4/34.3) P/ Patient currently under cardiac w/u by hospitalis; once she is cleared, we will proceed with EGD with biopsy in AM. Procedure, risks, benefits, complications explained to the patient, her questions were answered and she decides to proceed
[2018-11-27] MEDS ORDERED: NORMAL SALINE 1000 ML 1,000 ML IV PRN (11:50)
[2018-11-27 12:25] LABS: CREATINE KINASE MB < 0.22 ng/mL (<4.55); TROPONIN I < 0.012 ng/mL
--- NOTE | 2018-11-27 12:54 | PDOC PROGRESS REPORT ---
Subjective Progress Note for:: 11/27/18 Subjective:: Preprocedure evaluation Reason For Visit: ABDOMINAL PAIN Physical Exam Vital Signs: Temp Pulse Resp BP Pulse Ox 98.0 F 53 L 17 106/59 L 100 11/27/18 02:23 11/27/18 02:23 11/27/18 02:23 11/27/18 02:23 11/27/18 02:23 Intake & Output 11/26/18 11/27/18 11/28/18 06:59 06:59 06:59 Intake Total 1000 Balance 1000 Weight 79.5 kg General appearance: PRESENT: cooperative, mild distress Head exam: PRESENT: normocephalic Respiratory exam: PRESENT: clear to auscultation dimple, symmetrical, unlabored. ABSENT: rhonchi, tachypnea, wheezes Cardiovascular exam: PRESENT: RRR, +S1, +S2 GI/Abdominal exam: PRESENT: soft, tenderness - Epigastrium to right upper quadrant Neurological exam: PRESENT: alert, awake, oriented to person, oriented to place, oriented to time, oriented to situation, CN II-XII grossly intact Psychiatric exam: PRESENT: appropriate affect - Affect reflects her clinical condition with significant discomfort. ABSENT: agitated, anxious Focused psych exam: ABSENT: delusional, restlessness Results Laboratory Results: 11/27/18 07:40 11/27/18 07:40 11/26/18 11/26/18 11/26/18 16:06 16:06 16:06 WBC 8.2 RBC 4.44 Hgb 13.4 Hct 38.6 MCV 87 MCH 30.1 MCHC 34.7 RDW 14.0 Plt Count 253 Seg Neutrophils % 48.3 Lymphocytes % 39.5 Monocytes % 8.9 Eosinophils % 2.6 Basophils % 0.7 Absolute Neutrophils 4.0 Absolute Lymphocytes 3.2 Absolute Monocytes 0.7 Absolute Eosinophils 0.2 Absolute Basophils 0.1 Sodium 142.5 Potassium 3.6 Chloride 114 H Carbon Dioxide 19 L Anion Gap 10 BUN 12 Creatinine 0.88 Est GFR ( Amer) > 60 Est GFR (Non-Af Amer) > 60 Glucose 138 H Calcium 9.6 Total Bilirubin 0.3 AST 22 ALT 16 Alkaline Phosphatase 65 Total Protein 6.2 L Albumin 3.7 Lipase 48.0 Urine Color Urine Appearance Urine pH Ur Specific [place] Urine Protein Urine Glucose (UA) Urine Ketones Urine Blood Urine Nitrite Ur Leukocyte Esterase Urine WBC (Auto) Urine RBC (Auto) 11/26/18 11/27/18 11/27/18 18:55 07:40 07:40 WBC 7.2 RBC 3.93 Hgb 11.4 L Hct 34.3 L MCV 87 MCH 29.0 MCHC 33.2 RDW 14.1 H Plt Count 197 Seg Neutrophils % 62.8 Lymphocytes % 25.3 Monocytes % 9.8 Eosinophils % 1.2 Basophils % 0.9 Absolute Neutrophils 4.5 Absolute Lymphocytes 1.8 Absolute Monocytes 0.7 Absolute Eosinophils 0.1 Absolute Basophils 0.1 Sodium 142.9 Potassium 3.7 Chloride 118 H Carbon Dioxide 22 Anion Gap 3 L BUN 10 Creatinine 0.95 Est GFR ( Amer) > 60 Est GFR (Non-Af Amer) > 60 Glucose 101 Calcium 8.5 Total Bilirubin 0.4 AST 257 H ALT 217 H Alkaline Phosphatase 87 Total Protein 5.3 L Albumin 3.0 L Lipase Urine Color YELLOW Urine Appearance SLIGHTLY-CLOUDY Urine pH 9.0 Ur Specific [place] 1.005 Urine Protein NEGATIVE Urine Glucose (UA) NEGATIVE Urine Ketones NEGATIVE Urine Blood NEGATIVE Urine Nitrite NEGATIVE Ur Leukocyte Esterase NEGATIVE Urine WBC (Auto) 0 Urine RBC (Auto) 1 11/26/18 11/27/18 11/27/18 16:06 00:20 00:20 Creatine Kinase 37 CK-MB (CK-2) 0.31 Troponin I < 0.012 < 0.012 11/27/18 11/27/18 11/27/18 07:40 07:40 11:13 Creatine Kinase 35 32 CK-MB (CK-2) < 0.22 Troponin I < 0.012 11/27/18 11:13 Creatine Kinase CK-MB (CK-2) < 0.22 Troponin I < 0.012 Impressions: Abdomen/Pelvis CT 11/26/18 00:00 IMPRESSION: 1. Pericardial effusion 2. Colonic diverticulosis but no CT evidence for acute diverticulitis. 3. No acute findings in the abdomen or pelvis. 4. Previous cholecystectomy. Assessment and Plan - Diagnosis (1) Epigastric pain Is this a current diagnosis for this admission?: Yes Plan: The patient is scheduled for upper endoscopy. Her serial troponins were negative. EKG reveals inverted T waves that were present on an EKG from 2013. Of note the patient's transaminases increased 10 fold from yesterday. I have added a lipase to this morning's blood work. From a cardiac standpoint the patient is cleared for endoscopy.
[2018-11-27] MEDS ORDERED: ONDANSETRON HCL INJ/PF 4 MG/2 ML SDV ONE (13:17)
[2018-11-27] MEDS ORDERED: DIPHENHYDRAMINE HCL 50 MG/ML VIAL ONE (13:17)
[2018-11-27] MEDS ORDERED: EPINEPHRINE INJ 1 MG/10 ML DISP.SYRIN ONE (13:18)
[2018-11-27] MEDS ORDERED: FLUMAZENIL INJ 0.5 MG/5 ML VIAL ONE (13:18)
[2018-11-27] MEDS ORDERED: NALOXONE HCL INJ/PF 0.4 MG/1 ML SDV ONE (13:18)
[2018-11-27] MEDS ORDERED: GLUCAGON,HUMAN RECOMB 1 MG INJ ONE (13:18)
[2018-11-27] MEDS: MIDAZOLAM 2 MG/2 ML INJ ONE ×6 (13:38→13:48)
[2018-11-27] MEDS: FENTANYL CITRATE INJ/PF 100 MCG/2 ML AMPUL ONE ×5 (13:40→13:48)
--- NOTE | 2018-11-27 14:01 | Operative Report ---
Nonrecallable Operative Report DATE OF SURGERY: 11/27/18 PREOPERATIVE DIAGNOSIS: nausea vomiting POSTOPERATIVE DIAGNOSIS: same, bile reflux, gastritis OPERATION: EGD with biopsy SURGEON: CLAUDE NETTLES ANESTHESIA: Moderate Sedation - 3 mg IVP Versed, 75 mcg IVP Fentanyl by Dr. Nettles TISSUE REMOVED OR ALTERED: bx stomach mucosa COMPLICATIONS: none ESTIMATED BLOOD LOSS: none INTRAOPERATIVE FINDINGS: large amount of bile into stomach, gastritis PROCEDURE: see dictation
--- NOTE | 2018-11-27 14:11 | Progress Note ---
Provider Note Provider Note: EGD shows severe bile reflux and gastritis Gastric emptying study ordered to r/o gatroparesis I would start the patient on bile salts (Questran) to prevent the symptoms of bile irritation
--- NOTE | 2018-11-27 15:24 | OPERATIVE REPORT E ---
Operative Report NAME: SURENDRA ESTEVEZ : 1960 AGE: 58Y DATE OF SURGERY: 11/27/2018 ROOM: 527 PREOPERATIVE DIAGNOSIS: Intractable nausea and vomiting. POSTOPERATIVE DIAGNOSES: 1. Intractable nausea and vomiting. 2. Bile reflux into the stomach. 3. Gastritis. OPERATION: 1. EGD with biopsy. 2. Conscious sedation provided by Dr. Nettles. SURGEON: CLAUDE NETTLES M.D. LAYOUT INSPECTOR: None. ANESTHESIA: Conscious sedation with 2 mg IV push of Versed and 75 mcg IV push of Fentanyl by Dr. Nettles. ESTIMATED BLOOD LOSS: None. COMPLICATIONS: None. INDICATION AND FINDINGS: This is a 58-year-old female who presented to the hospital complaining of sudden onset of severe nausea and vomiting. She has a history of type 2 diabetes. She denies a previous history of peptic ulcer disease or GERD. The decision was made to perform an upper endoscopy. The procedure, risks, benefits, and complications were explained to the patient. She understands and desires to proceed. DESCRIPTION OF PROCEDURE: The procedure was done in the procedure room. The patient was placed in lateral decubitus and sedation provided as above. The gastroscope was inserted without difficulty into the mouth, into the esophagus, stomach, and duodenum. The duodenum was free from disease and appeared to be normal. The instrument was then withdrawn into the stomach, which appeared to be erythematous. No ulceration, polyps, fissures, or indentations were identified. A large amount of bile was noted within the stomach. The instrument was then retroflexed. Examination of the fundus and GE junction appeared to be within normal limits. Multiple random biopsies of the gastric mucosa were obtained and was sent for pathology and H. pylori. The instrument was then withdrawn into the esophagus, which appeared to be normal, and extracted from the patient's mouth. The patient tolerated the procedure well and was transferred to the recovery room in satisfactory condition. DICTATING PHYSICIAN: CLAUDE NETTLES M.D. [id number] PHY#: [id number] ID: [id number] JOB#: [id number] ACCT: [id number] cc:CLAUDE NETTLES M.D. > [facility]
[2018-11-27] MEDS: CHOLESTYRAMINE/ASPARTAME 4 GM PACKET PO SCH ×2 (19:11→22:58)
--- NOTE | 2018-11-27 21:13 | XCELERA REPORT ---
[address] [address] Transthoracic Echocardiogram Report Name: SURENDRA ESTEVEZ Age: 58 yrs Gender: Female : 1960 Patient Status: Inpatient Patient Location: [address] [place] [address] Study Date: 11/27/2018 09:15 AM Height: 63 in Weight: 175 lb BSA: 1.8 m2 Procedure: A two-dimensional transthoracic echocardiogram with color flow Doppler was performed. The study was technically difficult with many images being suboptimal in quality. The study was technically limited with all images being suboptimal in quality. Reason For Study: Moderate pericardial effusion History: Moderate pericardial effusion. Ordering Physician: DAILY DILL Performed By: Oliva Huggins Interpretation Summary The left ventricle is normal in size. There is normal left ventricular wall thickness. LV EF is > than 55% The left ventricular ejection fraction is within normal limits. Doppler measurements suggest normal left ventricular diastolic function The left ventricular wall motion is normal. There is no thrombus. Cannot assess ASD,VSD ,or PFO. The right ventricle is not well visualized secondary to technical limitations Right atrium not well visualized secondary to technical limitations There is no evidence of mitral valve prolapse. There is no vegetation seen on the mitral valve. There is no mitral valve stenosis. There is no mitral regurgitation noted. There is no aortic valvular vegetation. There is no aortic valve stenosis There is no LVOT obstruction. No aortic regurgitation is present. There is no tricuspid stenosis. No tricuspid regurgitation. Cannot assess RVSP due to lack of TR jet. There is no pulmonic valvular stenosis. There is no pulmonic valvular regurgitation. Minimal pericardial effusion. There are no echocardiographic or Doppler indications for cardiac tamponade MMode/2D Measurements & Calculations RVDd: 3.5 cm LVIDd: 5.4 cm FS: 29.0 % Ao root diam: 3.2 cm IVSd: 0.75 cm LVIDs: 3.8 cm EDV(Teich): LVPWd: 1.0 cm 140.2 ml Ao root area: ESV(Teich): 62.7 ml7.9 cm2 EF(Teich): 55.3 % EDV(MOD-sp4): SV(MOD-sp4): 72.3 ml 46.7 ml ESV(MOD-sp4): 25.6 ml EF(MOD-sp4): 64.6 % Doppler Measurements & Calculations MV E max marissa: MV dec slope: Ao V2 max: LV V1 max P.8 cm/sec 136.7 cm/sec 5.4 mmHg MV A max marissa: 451.9 cm/sec2 Ao max PG: LV V1 max: 66.3 cm/sec MV dec time: 0.17 sec 7.5 mmHg 116.2 cm/sec MV E/A: 1.2 PA V2 max: 81.1 cm/sec PA max P.6 mmHg Left Ventricle The left ventricle is normal in size. There is normal left ventricular wall thickness. LV EF is > than 55%. The left ventricular ejection fraction is within normal limits. Doppler measurements suggest normal left ventricular diastolic function. The left ventricular wall motion is normal. There is no thrombus. Cannot assess ASD,VSD ,or PFO. Right Ventricle The right ventricle is not well visualized secondary to technical limitations. Atria Right atrium not well visualized secondary to technical limitations. The left atrial size is normal. Mitral Valve There is no evidence of mitral valve prolapse. There is no vegetation seen on the mitral valve. There is no mitral valve stenosis. There is no mitral regurgitation noted. Aortic Valve There is no aortic valvular vegetation. There is no aortic valve stenosis. There is no LVOT obstruction. No aortic regurgitation is present. Tricuspid Valve There is no tricuspid stenosis. No tricuspid regurgitation. Cannot assess RVSP due to lack of TR jet. Pulmonic Valve There is no pulmonic valvular stenosis. There is no pulmonic valvular regurgitation. Great Vessels The aortic root is normal size. Effusions Minimal pericardial effusion. There are no echocardiographic or Doppler indications for cardiac tamponade. : DAILY DILL > Gladys Willis
[2018-11-27] MEDS: SIMVASTATIN 10 MG TABLET PO SCH (22:57)
[2018-11-28 05:18] LABS: ABSOLUTE BASOPHILS # (AUTO) 0.1 10^3/uL (0.0-0.2); ABSOLUTE EOSINOPHILS # (AUTO) 0.3 10^3/uL (0.0-0.6); ABSOLUTE LYMPHOCYTES (AUTO) 2.4 10^3/uL (0.5-4.7); ABSOLUTE MONOCYTES (AUTO) 0.5 10^3/uL (0.1-1.4); BASOPHILS % (AUTO) 0.9 % (0-2); EOSINOPHILS % (AUTO) 4.2 % (0-6); HEMATOCRIT 35.4 % (36.0-47.0); HEMOGLOBIN 11.7 g/dL (12.0-15.5); LYMPHOCYTES % (AUTO) 32.7 % (13-45); MEAN CORPUSCULAR HEMOGLOBIN 29.1 pg (27.0-33.4); MEAN CORPUSCULAR HGB CONC 33.2 g/dL (32.0-36.0); MEAN CORPUSCULAR VOLUME 88 fl (80-97); MONOCYTES % (AUTO) 7.2 % (3-13); PLATELET COUNT 188 10^3/uL (150-450); RED BLOOD COUNT 4.03 10^6/uL (3.72-5.28); RED CELL DISTRIBUTION WIDTH 13.8 % (11.5-14.0); TOTAL CELLS COUNTED % (AUTO) 100 %; WHITE BLOOD COUNT 7.3 10^3/uL (4.0-10.5)
[2018-11-28] MEDS: LEVOTHYROXINE SODIUM 0.075 MG TABLET PO SCH (06:19)
[2018-11-28] MEDS: PANTOPRAZOLE SODIUM 40 MG VIAL IV SCH ×2 (06:20→16:11)
[2018-11-28] MEDS: MORPHINE SULFATE 10 MG/ML INJ IV PRN (12:06)
--- NOTE | 2018-11-28 13:44 | RADIOLOGY REPORT (SQ) ---
EXAM DESCRIPTION: NM GASTRIC EMPTYING STUDY COMPLETED DATE/TIME: 11/28/2018 1:13 pm REASON FOR STUDY: nausea vomiting in diabetic patient I31.3 PERICARDIAL EFFUSION (NONINFLAMMATORY) COMPARISON: None. RADIONUCLIDE AND DOSE: 2 millicuries Tc-99m Sulfur Colloid. Egg salad sandwich The route of agent administration: Oral. TECHNIQUE: 1 minute serial static imaging performed at time of meal, 1 hour, 2 hours, 3 hours, and 4 hours as needed. Once stomach reaches 90% emptying, the test is complete. Image intensity values pl otted with respect to time with linear regression algorithm. LIMITATIONS: None. FINDINGS: Patient was observed for 4 hours. Immediate post meal serves as baseline. Gastric emptying at 30 minutes was 14.5%. Gastric emptying at 60 minutes was 29% Gastric emptying at 90 minutes was 43.5%. Gastric emptying at 120 minutes was 58%. Gastric emptying at 240 minutes was 100% Normal values: 60 minutes: 30-90% retained. If less than 30%, abnormally rapid emptying. If greater than 90%, del ayed gastric emptying. 120 minutes: <60% retained. If greater than 60%, delayed gastric emptying. 240 minutes: <10% retained. If greater than 10%, delayed gastric emptying. IMPRESSION: NORMAL GASTRIC EMPTYING. TECHNICAL DOCUMENTATION: JOB ID: [id number] [employer]- All Rights Reserved rev Reading location - IP/workstation name: [email or web address]
[2018-11-28] MEDS: INSULIN LISPRO 100 UNIT/ML 3 ML VIAL SUBCUT SCH ×2 (15:39→19:09)
[2018-11-28] MEDS: CHOLESTYRAMINE/ASPARTAME 4 GM PACKET PO SCH ×4 (15:42→23:34)
[2018-11-28] MEDS: BUSPIRONE HCL 10 MG TABLET PO SCH ×4 (15:43→23:35)
[2018-11-28] MEDS: VERAPAMIL HCL 120 MG TABLET.SA PO SCH (16:05)
[2018-11-28] MEDS: ENOXAPARIN SODIUM INJ 40 MG/0.4 ML DISP.SYRIN SUBCUT SCH (16:12)
[2018-11-28] MEDS: TOPIRAMATE 100 MG TABLET PO SCH (16:12)
[2018-11-28] MEDS ORDERED: SUMATRIPTAN SUCCINATE 25 MG TABLET PO PRN (17:36)
--- NOTE | 2018-11-28 17:45 | PDOC PROGRESS REPORT ---
Subjective Progress Note for:: 11/28/18 Subjective:: This is a 58 yr old female with hypothyroidism, hypertension and migraine who presented with nausea, vomiting and epigastric pain. Patient underwent EGD yesterday 11/27/18 which showed severe bile reflux and gastritis. No acute event overnight. This morning, she still complains of epigastric pain with mild tenderness on palpation. No nausea or vomiting. Surgery has ordered a gastric emptying study and has started her on Questran. Reason For Visit: ABDOMINAL PAIN Physical Exam Vital Signs: Temp Pulse Resp BP Pulse Ox 97.9 F 57 L 16 104/63 97 11/28/18 16:02 11/28/18 16:02 11/28/18 16:02 11/28/18 16:02 11/28/18 16:02 Intake & Output 11/27/18 11/28/18 11/29/18 06:59 06:59 06:59 Intake Total 1976 Balance 1976 Weight 175 lb 4.28 oz 196 lb 6.91 oz General appearance: PRESENT: no acute distress, well-developed, well-nourished Head exam: PRESENT: atraumatic, normocephalic Eye exam: PRESENT: conjunctiva pink, EOMI, PERRLA. ABSENT: scleral icterus Ear exam: PRESENT: normal external ear exam Mouth exam: PRESENT: moist, tongue midline Neck exam: ABSENT: carotid bruit, JVD, lymphadenopathy, thyromegaly Respiratory exam: PRESENT: clear to auscultation dimple. ABSENT: rales, rhonchi, wheezes Cardiovascular exam: PRESENT: RRR. ABSENT: diastolic murmur, rubs, systolic murmur Pulses: PRESENT: normal dorsalis pedis pul GI/Abdominal exam: PRESENT: normal bowel sounds, soft. ABSENT: distended, guarding, mass, organolmegaly, rebound, tenderness Rectal exam: PRESENT: deferred Neurological exam: PRESENT: alert, awake, oriented to person, oriented to place, oriented to time, oriented to situation, CN II-XII grossly intact. ABSENT: motor sensory deficit Results Laboratory Results: 11/28/18 04:25 11/27/18 07:40 11/28/18 04:25 WBC 7.3 RBC 4.03 Hgb 11.7 L Hct 35.4 L MCV 88 MCH 29.1 MCHC 33.2 RDW 13.8 Plt Count 188 Seg Neutrophils % 55.0 Lymphocytes % 32.7 Monocytes % 7.2 Eosinophils % 4.2 Basophils % 0.9 Absolute Neutrophils 4.0 Absolute Lymphocytes 2.4 Absolute Monocytes 0.5 Absolute Eosinophils 0.3 Absolute Basophils 0.1 11/26/18 11/27/18 11/27/18 16:06 00:20 00:20 Creatine Kinase 37 CK-MB (CK-2) 0.31 Troponin I < 0.012 < 0.012 11/27/18 11/27/18 11/27/18 07:40 07:40 11:13 Creatine Kinase 35 32 CK-MB (CK-2) < 0.22 Troponin I < 0.012 11/27/18 11:13 Creatine Kinase CK-MB (CK-2) < 0.22 Troponin I < 0.012 Impressions: Abdomen/Pelvis CT 11/26/18 00:00 IMPRESSION: 1. Pericardial effusion 2. Colonic diverticulosis but no CT evidence for acute diverticulitis. 3. No acute findings in the abdomen or pelvis. 4. Previous cholecystectomy. Gastric Emptying Nuclear Medicine 11/28/18 00:00 IMPRESSION: NORMAL GASTRIC EMPTYING. Assessment and Plan - Diagnosis (1) Epigastric pain Is this a current diagnosis for this admission?: Yes Plan: Patient underwent EGD yesterday 11/27/18 which showed severe bile reflux and gastritis. This morning, she still complains of epigastric pain with mild tenderness on palpation.Surgery has ordered a gastric emptying study and has started her on Questran. Liver enzymes did trend up from admission. CT of the abdomen/pelvis is unremarkable. Will recheck CMP tomorrow. (2) Elevated liver enzymes Is this a current diagnosis for this admission?: Yes Plan: As per number 1. (3) Hypothyroidism Is this a current diagnosis for this admission?: Yes Plan: Resume synthroid. (4) Hypertension Is this a current diagnosis for this admission?: Yes Plan: Controlled. On verapamil. - Time Time Spent with patient: 25-34 minutes
[2018-11-28] MEDS: SIMVASTATIN 10 MG TABLET PO SCH (23:34)
[2018-11-29] MEDS: INSULIN LISPRO 100 UNIT/ML 3 ML VIAL SUBCUT SCH ×3 (01:13→12:14)
[2018-11-29 05:12] LABS: ABSOLUTE BASOPHILS # (AUTO) 0.1 10^3/uL (0.0-0.2); ABSOLUTE EOSINOPHILS # (AUTO) 0.3 10^3/uL (0.0-0.6); ABSOLUTE LYMPHOCYTES (AUTO) 2.5 10^3/uL (0.5-4.7); ABSOLUTE MONOCYTES (AUTO) 0.6 10^3/uL (0.1-1.4); ABSOLUTE NEUT (AUTO) 3.4 10^3/uL (1.7-8.2); BASOPHILS % (AUTO) 1.1 % (0-2); HEMATOCRIT 32.5 % (36.0-47.0); HEMOGLOBIN 11.1 g/dL (12.0-15.5); LYMPHOCYTES % (AUTO) 36.2 % (13-45); MEAN CORPUSCULAR HEMOGLOBIN 29.6 pg (27.0-33.4); MEAN CORPUSCULAR HGB CONC 34.1 g/dL (32.0-36.0); MEAN CORPUSCULAR VOLUME 87 fl (80-97); MONOCYTES % (AUTO) 8.7 % (3-13); PLATELET COUNT 180 10^3/uL (150-450); RED BLOOD COUNT 3.75 10^6/uL (3.72-5.28); RED CELL DISTRIBUTION WIDTH 13.6 % (11.5-14.0); TOTAL CELLS COUNTED % (AUTO) 100 %; WHITE BLOOD COUNT 6.9 10^3/uL (4.0-10.5)
[2018-11-29 05:37] LABS: ALANINE AMINOTRANSFERASE 99 U/L (9-52); ALBUMIN 2.9 g/dL (3.5-5.0); ALKALINE PHOSPHATASE 82 U/L (38-126); ANION GAP 7 (5-19); ASPARTATE AMINO TRANSFERASE 26 U/L (14-36); BLOOD UREA NITROGEN 7 mg/dL (7-20); CALCIUM 8.4 mg/dL (8.4-10.2); CARBON DIOXIDE 20 mmol/L (22-30); CHLORIDE 115 mmol/L (98-107); GLUCOSE 112 mg/dL (75-110); POTASSIUM 3.6 mmol/L (3.6-5.0); SODIUM 142.4 mmol/L (137-145); TOTAL PROTEIN 5.2 g/dL (6.3-8.2)
[2018-11-29 05:45] LABS: BILIRUBIN,TOTAL < 0.1 mg/dL (0.2-1.3)
[2018-11-29] MEDS: PANTOPRAZOLE SODIUM 40 MG VIAL IV SCH (06:23)
[2018-11-29] MEDS: LEVOTHYROXINE SODIUM 0.075 MG TABLET PO SCH (06:24)
[2018-11-29] MEDS: CHOLESTYRAMINE/ASPARTAME 4 GM PACKET PO SCH ×2 (08:25→12:15)
[2018-11-29] MEDS ORDERED: BISACODYL 10 MG SUPP.RECT PR ONE (10:30)
[2018-11-29] MEDS: BUSPIRONE HCL 10 MG TABLET PO SCH (11:13)
[2018-11-29] MEDS: VERAPAMIL HCL 120 MG TABLET.SA PO SCH (11:13)
[2018-11-29] MEDS: TOPIRAMATE 100 MG TABLET PO SCH (11:13)
[2018-11-29] MEDS: ENOXAPARIN SODIUM INJ 40 MG/0.4 ML DISP.SYRIN SUBCUT SCH (11:14)
[2018-11-29 12:09] VITALS: BP 142/82
--- NOTE | 2018-11-29 18:14 | PDOC DISCHARGE SUMMARY ---
General - Admit/Disc Date/PCP Admission Date/Primary Care Provider: 11/27/18 00:11 ZACH CARDENAS MD Discharge Date: 11/29/18 - Discharge Diagnosis (1) Gastritis Is this a current diagnosis for this admission?: Yes (2) Epigastric pain Is this a current diagnosis for this admission?: Yes (3) Elevated liver enzymes Is this a current diagnosis for this admission?: Yes (4) Hypothyroidism Is this a current diagnosis for this admission?: Yes (5) Hypertension Is this a current diagnosis for this admission?: Yes - Additional Information Resuscitation Status: Full Code Discharge Diet: As Tolerated Discharge Activity: Activity As Tolerated, Balance Activity w/Rest Prescriptions: Cholestyramine/Aspartame [Questran Light 4 gm Packet] 4 gm PO MEALSHS #120 packet Pantoprazole Sodium [Protonix [address] Tablet] 40 mg PO QAM #30 tablet. Home Medications: Erenumab-Aooe [Aimovig Autoinjector (2 Pack)] 1 ml INJ .MONTHLY 11/27/18 Levothyroxine Sodium [Tirosint] 75 mcg PO Q6AM 11/27/18 Meperidine HCl [Demerol] 100 mg PO Q8HP PRN 11/27/18 Promethazine HCl 50 mg PO DAILY 11/27/18 Simvastatin [Zocor 20 mg Tablet] 20 mg PO QHS 11/27/18 Topiramate [Topamax 100 mg Tablet] 200 mg PO Q12 11/27/18 Verapamil HCl [Calan 120 mg Tablet] 120 mg PO DAILY 11/27/18 Cholestyramine/Aspartame [Questran Light 4 gm Packet] 4 gm PO MEALSHS #120 packet 11/29/18 Pantoprazole Sodium [Protonix [address] Tablet] 40 mg PO QAM #30 tablet. 11/29/18 History of Present Illness History of Present Illness: Admitting hospitalist's H&P: SURENDRA ESTEVEZ is a 58 year old female with history of multiple medical problems that will be mentioned below who presented to the emergency room with acute onset of right flank pain radiating to her epigastric area with associated intractable nausea and vomiting today. She vomited yellowish liquid. No fever or chills. No chest pain or palpitations or dyspnea. She has been having cough. No dysuria, oliguria or hematuria or flank pain. Upon presentation to the emergency room, her blood pressure was 132/85 with a pulse of 63 respiratory rate of 24 temperature 98.6 and pulse oximetry 100% on room air. Labs are remarkable for a CO2 of 19 and chloride of 114 with total protein of 6.2. Initial set of cardiac enzymes was negative. Urinalysis was unremarkable. The patient abdominal and pelvic CT scan with IV contrast r evealed colonic diverticulosis without diverticulitis, previous cholecystectomy, with no acute findings in the abdomen or pelvis. It showed pericardial effusion. Chest CT without contrast revealed small to moderate pericardial effusion otherwise was unremarkable. The patient was given 10 mg of IV morphine sulfate twice, p.o. Reglan and Carafate, GI cocktail and Pepcid, IV Toradol, Zofran and BuSpar. She was still having epigastric abdominal pain and tenderness. She will be admitted to an ob servation telemetry bed for further evaluation and management. Hospital Course Hospital Course: This is a 58 yr old female with hypothyroidism, hypertension and migraine who presented with nausea, vomiting and epigastric pain. She had a CT of the abdomen/pelvis which was unremarkable for acute findings. [facility] which showed severe bile reflux and gastritis. She also had a normal gastric emptying study. She was started on Questran by surgery. She was also started on PPI. Her abdominal pain did significantly improve. She had a normal BM on the day of discharge and only had very minimal epigastric pain. She will be discharged on PPI and Questran. She was also advised to avoid NSAIDs. Physical Exam Vital Signs: Temp Pulse Resp BP Pulse Ox 98.0 F 61 18 134/61 H 100 11/29/18 11:43 11/29/18 11:43 11/29/18 11:43 11/29/18 11:43 11/29/18 11:43 Intake & Output 11/28/18 11/29/18 11/30/18 06:59 06:59 06:59 Intake Total 3772 405 6878 Balance 4680 911 4954 Weight 196 lb 6.91 oz 184 lb 4.903 oz General appearance: PRESENT: no acute distress, well-developed, well-nourished Head exam: PRESENT: atraumatic, normocephalic Eye exam: PRESENT: conjunctiva pink, EOMI, PERRLA. ABSENT: scleral icterus Ear exam: PRESENT: normal external ear exam Mouth exam: PRESENT: moist, tongue midline Neck exam: ABSENT: carotid bruit, JVD, lymphadenopathy, thyromegaly Respiratory exam: PRESENT: clear to auscultation dimple. ABSENT: rales, rhonchi, wheezes Cardiovascular exam: PRESENT: RRR. ABSENT: diastolic murmur, rubs, systolic murmur Pulses: PRESENT: normal dorsalis pedis pul GI/Abdominal exam: PRESENT: normal bowel sounds, soft. ABSENT: distended, guarding, mass, organolmegaly, rebound, tenderness Rectal exam: PRESENT: deferred Extremities exam: PRESENT: full ROM. ABSENT: calf tenderness, clubbing, pedal edema Neurological exam: PRESENT: alert, awake, oriented to person, oriented to place, oriented to time, oriented to situation, CN II-XII grossly intact. ABSENT: motor sensory deficit Results Laboratory Results: 11/29/18 03:47 11/29/18 03:47 11/29/18 11/29/18 11/29/18 03:47 03:47 03:47 WBC 6.9 RBC 3.75 Hgb 11.1 L Hct 32.5 L MCV 87 MCH 29.6 MCHC 34.1 RDW 13.6 Plt Count 180 Seg Neutrophils % 49.0 Lymphocytes % 36.2 Monocytes % 8.7 Eosinophils % 5.0 Basophils % 1.1 Absolute Neutrophils 3.4 Absolute Lymphocytes 2.5 Absolute Monocytes 0.6 Absolute Eosinophils 0.3 Absolute Basophils 0.1 Sodium 142.4 Potassium 3.6 Chloride 115 H Carbon Dioxide 20 L Anion Gap 7 BUN 7 Creatinine 0.82 Est GFR ( Amer) > 60 Est GFR (Non-Af Amer) > 60 Glucose 112 H Calcium 8.4 Total Bilirubin < 0.1 L AST 26 ALT 99 H Alkaline Phosphatase 82 Total Protein 5.2 L Albumin 2.9 L TSH 2.27 11/26/18 11/27/18 11/27/18 16:06 00:20 00:20 Creatine Kinase 37 CK-MB (CK-2) 0.31 Troponin I < 0.012 < 0.012 11/27/18 11/27/18 11/27/18 07:40 07:40 11:13 Creatine Kinase 35 32 CK-MB (CK-2) < 0.22 Troponin I < 0.012 11/27/18 11:13 Creatine Kinase CK-MB (CK-2) < 0.22 Troponin I < 0.012 Impressions: Abdomen/Pelvis CT 11/26/18 00:00 IMPRESSION: 1. Pericardial effusion 2. Colonic diverticulosis but no CT evidence for acute diverticulitis. 3. No acute findings in the abdomen or pelvis. 4. Previous cholecystectomy. Gastric Emptying Nuclear Medicine 11/28/18 00:00 IMPRESSION: NORMAL GASTRIC EMPTYING. Qualifiers - * PATIENT BEING DISCHARGED WITH ANY OF THE FOLLOWING DIAGNOSIS: No
== END 2018-11-29 12:25 | disposition home or self-care (01) ==
LOC: ER 16:29 → EH 11-27 00:11 → 5 11-27 02:05
PROVIDERS: ADMIT Family Medicine; ATTEND Family Medicine
PROC: 0DB68ZX Excision of Stomach, Via Natural or Artificial Opening Endoscopic, Diagnostic (ICD-10-PCS; principal; 2018-11-26)
DX: K29.70 Gastritis, unspecified, without bleeding (principal); R10.13 Epigastric pain; K31.9 Disease of stomach and duodenum, unspecified; R74.8 Abnormal levels of other serum enzymes; E03.9 Hypothyroidism, unspecified; I10 Essential (primary) hypertension; R11.2 Nausea with vomiting, unspecified; R05 Cough; K57.30 Diverticulosis of large intestine without perforation or abscess without bleeding; G43.909 Migraine, unspecified, not intractable, without status migrainosus; K21.9 Gastro-esophageal reflux disease without esophagitis; D64.9 Anemia, unspecified; I31.3 Pericardial effusion (noninflammatory); R73.03 Prediabetes; M54.89 Other dorsalgia; Z79.899 Other long term (current) drug therapy; Z90.49 Acquired absence of other specified parts of digestive tract; Z85.43 Personal history of malignant neoplasm of ovary; Z90.710 Acquired absence of both cervix and uterus; Z98.51 Tubal ligation status; Z82.49 Family history of ischemic heart disease and other diseases of the circulatory system
CPT/HCPCS: 93005; 96376; 99291; 96361; 96374; 96375; 43239; 36415 ×4; 82553; 82962; 82550; 83690 ×2; 84443; 85025 ×4; 80076; 80048; 80053 ×2; 81001; 84484 ×2; 88342 ×2; 88305 ×2; 93306; 78264; 71250; 74177; 93010; G0378 ×4; A9541; A9270 ×16; J2250; J3490 ×5; J3010; J1885; J2270 ×3; J1650; C9113 ×3; J2405; J7030 ×2; J0171; J1200; J1610; J2310; S0164

== ENCOUNTER → 2019-05-15 | Outpatient (CLI) | payer MEDICARE, OTHER ==
--- NOTE | 2019-05-15 15:43 | WOMENS IMAGING REPORT ---
EXAM DESCRIPTION: 3D SCREENING MAMMO BILAT COMPLETED DATE/TIME: 05/15/2019 2:16 pm REASON FOR STUDY: Z12.31 ENCOUNTER FOR SCREENING MAMMOGRAM FOR MALIGNANT NEOPLASM OF BREAST Z12.31 ENCNTR SCREEN MAMMOGRAM FOR MALIGNANT NEOPLASM OF ANA LUISA Z78.0 ASYMPTOMATIC MENOPAUSAL STATE COMPARISON: Multiple since 2009 EXAM PARAMETERS: Views: Standard craniocaudal and mediolateral oblique views of each breast recorded using digital acquisition and breast tomosynthesis. Read with the assistance of CAD. .[facility] - [employer] Version 9.2 LIMITATIONS: None. FINDINGS: No suspicious masses, suspicious calcifications or architectural distortion. No areas of c oncern. IMPRESSION: NEGATIVE MAMMOGRAM. BIRADS 1. BREAST DENSITY: c. The breasts are heterogeneously dense, which may obscure small masses. BIRAD: ASSESSMENT: 1 NEGATIVE RECOMMENDATION: ROUTINE SCREENING COMMENT: The patient has been notified of the results by letter per MQSA requirements. Additional no tification policies are in place for contacting patient with suspicious or incomplete findings. Quality ID #[id number]: The [employer] recommends an annual screening mammogram for women aged 40 years or over. This facility utilizes a reminder system to ensure that all patients receive reminder letters, and/or direct phone calls for appointments. This includes reminders for routine scr eening mammograms, diagnostic mammograms, or other Breast Imaging Interventions when appropriate. Th is patient will be placed in the appropriate reminder system. TECHNICAL DOCUMENTATION: FINDING NUMBER: (1) ASSESSMENT: (1) JOB ID: [id number] All Rights Reserved Reading location - IP/workstation name: [facility]
--- NOTE | 2019-05-15 16:37 | WOMENS IMAGING REPORT ---
EXAM DESCRIPTION: BONE DENSITY HIP/SPINE COMPLETED DATE/TIME: 05/15/2019 2:16 pm REASON FOR STUDY: Z78.0 ASYMPTOMATIC MENOPAUSAL STATE Z12.31 ENCNTR SCREEN MAMMOGRAM FOR MALIGNANT NEOPLASM OF ANA LUISA Z78.0 ASYMPTOMATIC MENOPAUSAL STATE COMPARISON: None. TECHNIQUE: Dual-Energy X-ray Absorptiometry (DEXA) of the AP Spine and Hip. LIMITATIONS: None. FINDINGS: LUMBAR SPINE: The bone mineral density (BMD) measured from L1-L4 in the AP projection correlates with a T-score of 0.8, which is normal as defined by the World Health Organization. BMD Change vs Baseline: N/A HIP: The bone mineral density (BMD) measured in the left hip correlates with a T-score of -0.3 in the neck , which is normal as defined by the World Health Organization. BMD Change vs Baseline: N/A 10 year Fracture Risk Assessment: Major Osteoporotic Fracture: Not available. Hip Fracture: Not available. IMPRESSION: 1. LUMBAR SPINE WHO CLASSIFICATION: NORMAL. 2. HIP WHO CLASSIFICATION: NORMAL. OVERALL ASSESSMENT: WHO CLASSIFICATION: NORMAL. COMMENT: The World Health Organization defines low BMD as follows: T-score: Normal: Greater than -1.0 Osteopenia: Between -1.0 and -2.5 Osteoporosis: Less than -2.5 without fractures Established osteoporosis: Less than -2.5 with fractures In general, you may wish to consider: Diagnosis Treatment Follow-up DEXA Normal BMD Prevention 2-3 years Osteopenia Prevention/Therapy 1-2 years Osteoporosis Therapy Yearly TECHNICAL DOCUMENTATION: JOB ID: [id number] [employer]- All Rights Reserved Reading location - IP/workstation name: [email or web address]
== END ==
LOC: WI 13:37
PROVIDERS: ATTEND Internal Medicine
DX: Z12.31 Encounter for screening mammogram for malignant neoplasm of breast (principal); Z78.0 Asymptomatic menopausal state
CPT/HCPCS: 77063; 77067; 77080